=== PATIENT | male | born 1985 | race Caucasian/White ===

== ENCOUNTER 2022-12-16 22:04 | Inpatient (IN) ==
[2022-12-16 22:28] LABS: Hematocrit 35.8 % (38-53); Mean Corpuscular Hemoglobin 29.5 pg (27-33); Mean Corpuscular Hgb Conc 33.5 g/dL (31-36); Mean Corpuscular Volume 88.1 fL (80-97); Mean Platelet Volume 9.8 fL (7.5-11.2); Platelet Count 174 10^3/uL (150-450); Red Blood Count 4.07 10^6/uL (4.06-5.63); Red Cell Distribution Width 13.6 % (12-17); White Blood Count 24.3 10^3/uL (3.6-10.2)
[2022-12-16 22:35] LABS: ABS Basophils 0.1 10^3/uL (0.0-0.1); ABS Eosinophils 0.1 10^3/uL (0.0-0.5); ABS Lymphocytes 0.7 10^3/uL (1.0-4.8); ABS Monocytes 1.6 10^3/uL (0.0-1.1); ABS Neutrophils 21.8 10^3/uL (1.5-7.6); ABS Nucleated RBC 0.01 10^3/ul; Eosinophil % 0.2 %
[2022-12-16 22:36] LABS: INR 2.04 (0.88-1.18)
[2022-12-16 22:56] LABS: Albumin 3.6 g/dL (3.2-5.2); Albumin/Globulin Ratio 1.3 (1-3); Creatinine, Serum 0.75 mg/dL (0.67-1.17); Globulin 2.7 g/dL (2-4); Total Bilirubin 0.5 mg/dL (0.2-1.0); Total Protein 6.3 g/dL (6.4-8.9); eGFR CKD-EPI 118.5 (>60)
[2022-12-16] MEDS: Heparin 5000 UNITS/ML 1 mL VIAL IV SCH (23:57)
[2022-12-17] MEDS: Heparin DRIP 25,000 UNITS BAG 25,000 UNITS/500 ML BAG IV SCH ×2 (00:02→20:54)
[2022-12-17 00:10] LABS: High Sensitivity Troponin 1 Hr 6386 pg/mL (<20)
[2022-12-17] MEDS ORDERED: Lactated Ringers 1000 ml BAG 1,000 ML IV ONE (00:47)
[2022-12-17] MEDS ORDERED: Iohexol 350 (CONTRAST) 500 ML MDV IV ONE (01:37)
[2022-12-17 01:46] LABS: C Reactive Protein 238.12 mg/L (<8.01)
[2022-12-17] MEDS ORDERED: Piperacillin/Tazobac 3.375 BAG 3.375 GM/100 ML BAG IV ONE (02:23)
[2022-12-17] MEDS ORDERED: Vancomycin 1,250 MG in NS 0.9% 250 ml 250 ML IVPB ONE (02:23)
[2022-12-17] MEDS ORDERED: NS 0.9% 1000 ml BAG 1,000 ML IV ONE ×2 (02:46→10:09)
[2022-12-17 04:41] LABS: HDL Cholesterol 27.7 mg/dL
[2022-12-17] MEDS ORDERED: Zosyn per Pharmacy NOTE FOLLOW UP SCH (05:00)
[2022-12-17 05:35] LABS: Hematocrit 36.1 % (38-53); Hemoglobin 12.1 g/dL (13.2-16.3); Mean Corpuscular Hemoglobin 29.3 pg (27-33); Mean Corpuscular Hgb Conc 33.4 g/dL (31-36); Mean Corpuscular Volume 87.8 fL (80-97); Mean Platelet Volume 9.8 fL (7.5-11.2); Platelet Count 169 10^3/uL (150-450); Red Blood Count 4.12 10^6/uL (4.06-5.63); White Blood Count 24.4 10^3/uL (3.6-10.2)
[2022-12-17 05:40] LABS: ABS Basophils 0.1 10^3/uL (0.0-0.1); ABS Monocytes 1.3 10^3/uL (0.0-1.1); ABS Neutrophils 21.9 10^3/uL (1.5-7.6); Eosinophil % 0.1 %
[2022-12-17 05:53] LABS: Calcium 9.4 mg/dL (8.6-10.3); Creatinine, Serum 0.64 mg/dL (0.67-1.17); Magnesium 1.5 mg/dL (1.9-2.7); Potassium 3.7 mmol/L (3.5-5.0); eGFR CKD-EPI 124.3 (>60)
[2022-12-17] MEDS: DOXYcycline 100 MG in NS 0.9% 250 ml 250 ML IVPB SCH ×2 (06:32→19:03)
[2022-12-17] MEDS ORDERED: TROSPIUM 20 MG PO SCH (09:00)
[2022-12-17] MEDS: ZOSYN 3.375 GM Q8H per EXTENDED INFUSION IV SCH ×3 (09:30→22:04)
[2022-12-17] MEDS ORDERED: Linezolid 600 MG IVPREMIX(*) 600 MG/300 ML BAG IVPB ONE (09:59)
[2022-12-17] MEDS ORDERED: Magnesium Sulf 4 GM/100 ML IV 4,000 MG/100 ML BAG IVPB ONE (10:31)
[2022-12-17] MEDS ORDERED: Magnesium Sulfate IV 1GM/100ML 1 GM/100 ML BAG IV ONE (10:34)
[2022-12-17] MEDS ORDERED: Morphine 2 MG/ML SYRINGE IV ONE (11:01)
[2022-12-17 12:59] LABS: High Sensitivity Troponin 1 Hr 8938 pg/mL (<20)
[2022-12-17 13:25] LABS: Activated Partial Thrombo Time 48.9 seconds (26.0-38.0)
[2022-12-17] MEDS: Heparin 5000 UNITS/ML 1 mL VIAL IV SCH ×2 (13:50→21:00)
[2022-12-17] MEDS ORDERED: Morphine 2 MG/ML SYRINGE IV PRN (14:17)
[2022-12-17] MEDS ORDERED: Nitro 2% OINT (Nitroglycerin) 1 INCH/PAK TOPICAL ONE (17:13)
[2022-12-17 17:31] LABS: Urine Appearance Cloudy; Urine Bilirubin Negative (Negative); Urine Blood 1+ (Negative); Urine Color Yellow; Urine Glucose Negative (Negative); Urine Ketones Negative (Negative); Urine Nitrite Negative (Negative); Urine Protein Negative (Negative); Urine Specific Gravity 1.003 (1.002-1.030); Urine Urobilinogen Negative (Negative)
[2022-12-17 17:40] LABS: Urine Bacteria Absent (Absent); Urine Red Blood Cell 3+(>10/hpf) (Absent); Urine Sperm Present (Absent); Urine White Blood Cell 3+(>20/hpf) (Absent)
[2022-12-17] MEDS ORDERED: Lactated Ringers 1000 ml BAG 1,000 ML IV SCH (18:00)
[2022-12-17] MEDS: Senna TAB 8.6 mg TAB PO PRN (18:28)
[2022-12-17] MEDS: Ondansetron 4 mg VIAL 2 MG/ML 2 ml VIAL IV PRN ×2 (18:34→22:11)
[2022-12-17] MEDS: Nitro 2% OINT (Nitroglycerin) 1 INCH/PAK TOPICAL PRN ×2 (18:52→20:32)
[2022-12-17] MEDS: Trospium 20 mg TAB (NF) PO SCH (20:09)
[2022-12-17] MEDS ORDERED: Lactulose 30 ml UDC PO ONE (20:25)
[2022-12-17] MEDS: Polyethylene Glycol 3350 17 GM PACKET PO PRN (22:02)
[2022-12-18] MEDS: ZOSYN 3.375 GM Q8H per EXTENDED INFUSION IV SCH ×3 (07:23→20:51)
[2022-12-18] MEDS: Trospium 20 mg TAB (NF) PO SCH ×2 (07:23→20:50)
[2022-12-18] MEDS ORDERED: Magnesium Sulf 4 GM/100 ML IV 4,000 MG/100 ML BAG IVPB ONE (07:42)
[2022-12-18] MEDS: Aspirin EC 81 mg TAB.EC (enteric coated) PO SCH (08:52)
[2022-12-18] MEDS ORDERED: Lactated Ringers 1000 ml BAG 1,000 ML IV SCH (09:00)
[2022-12-18] MEDS ORDERED: Senna TAB 8.6 mg TAB PO PRN (09:59)
[2022-12-18] MEDS: Ondansetron 4 mg VIAL 2 MG/ML 2 ml VIAL IV PRN (11:07)
[2022-12-18] MEDS: Senna TAB 8.6 mg TAB PO PRN (11:09)
[2022-12-18] MEDS ORDERED: Lactulose 30 ml UDC PO ONE (12:15)
[2022-12-18 13:46] LABS: ABS Lymphocytes 0.4 10^3/uL (1.0-4.8); ABS Monocytes 0.5 10^3/uL (0.0-1.1); ABS Neutrophils 7.4 10^3/uL (1.5-7.6); ABS Nucleated RBC 0.01 10^3/ul; Eosinophil % 0.1 %; Hematocrit 35.1 % (38-53); Hemoglobin 12.1 g/dL (13.2-16.3); Lymphocyte % 5.2 %; Mean Corpuscular Hgb Conc 34.6 g/dL (31-36); Mean Corpuscular Volume 86.7 fL (80-97); Mean Platelet Volume 9.9 fL (7.5-11.2); Nucleated Red Blood Cells % 0.1 /100 WBC (0.0-0.4); Platelet Count 163 10^3/uL (150-450); Red Blood Count 4.04 10^6/uL (4.06-5.63); Red Cell Distribution Width 13.3 % (12-17); White Blood Count 8.4 10^3/uL (3.6-10.2)
[2022-12-18 14:01] LABS: C Reactive Protein 115.06 mg/L (<8.01); Calcium 8.2 mg/dL (8.6-10.3); Creatinine, Serum 0.71 mg/dL (0.67-1.17); Magnesium 2.6 mg/dL (1.9-2.7); Potassium 3.4 mmol/L (3.5-5.0); eGFR CKD-EPI 120.4 (>60)
[2022-12-18] MEDS ORDERED: Midazolam 5 mg/5 ml VIAL 1 mg/ml 5 ml VIAL (5 mg) ONE (14:08)
[2022-12-18] MEDS ORDERED: Iohexol 350 (CONTRAST) 100 ML PAK IV ONE (14:09)
[2022-12-18] MEDS ORDERED: nitroGLYCERIN DRIP 25,000 MCG/250 ML BTL ONE (14:09)
[2022-12-18] MEDS ORDERED: Lidocaine 1% MPF 5 ML VIAL ONE (14:09)
[2022-12-18] MEDS ORDERED: Heparin 2 UNITS/ML 1000 mls 2,000 ML IV ONE (14:09)
[2022-12-18] MEDS ORDERED: fentaNYL 100 mcg/2 ml 50 MCG/ML VIAL ONE (14:09)
[2022-12-18] MEDS ORDERED: VERAPAMIL 2.5 MG/ML 2 ML VIAL ** 5 mg/2 ml ONE (14:09)
[2022-12-18] MEDS ORDERED: Iohexol 350 (CONTRAST) 200 ML MDV IV ONE (14:09)
[2022-12-18] MEDS ORDERED: Heparin 1,000 UNIT/ML 10 ml (10,000 UNITS) CATHLAB/DIALYSIS ONE (14:09)
[2022-12-18] MEDS ORDERED: Midazolam 10 mg/10 ml VIAL 1 mg/ml 10 ml VIAL (10 mg) IV SLOW PU ONE (14:29)
[2022-12-18] MEDS ORDERED: fentaNYL 100 mcg/2 ml 50 MCG/ML VIAL IV SLOW PU ONE (14:29)
[2022-12-18 14:46] LABS: Activated Partial Thrombo Time 30.4 seconds (26.0-38.0); INR 1.23 (0.88-1.18)
[2022-12-18] MEDS ORDERED: NS 0.9% 1000 ml BAG 1,000 ML IV SCH (15:00)
[2022-12-18] MEDS: Nitro 2% OINT (Nitroglycerin) 1 INCH/PAK TOPICAL PRN (16:55)
[2022-12-18] MEDS: Polyethylene Glycol 3350 17 GM PACKET PO PRN (17:43)
[2022-12-19] MEDS: ZOSYN 3.375 GM Q8H per EXTENDED INFUSION IV SCH ×3 (04:31→21:30)
[2022-12-19] MEDS: Enoxaparin 40 MG/0.4 ML SYR SUBCUT SCH (05:22)
[2022-12-19 06:39] LABS: Hematocrit 31.7 % (38-53); Mean Corpuscular Hgb Conc 34.7 g/dL (31-36); Mean Corpuscular Volume 86.5 fL (80-97); Mean Platelet Volume 9.7 fL (7.5-11.2); Platelet Count 159 10^3/uL (150-450); Red Blood Count 3.66 10^6/uL (4.06-5.63); Red Cell Distribution Width 13.2 % (12-17); White Blood Count 5.1 10^3/uL (3.6-10.2)
[2022-12-19 06:53] LABS: Calcium 7.8 mg/dL (8.6-10.3); Creatinine, Serum 0.64 mg/dL (0.67-1.17); Potassium 3.3 mmol/L (3.5-5.0); eGFR CKD-EPI 124.3 (>60)
[2022-12-19 07:17] LABS: ABS Lymphocytes 0.5 10^3/uL (1.0-4.8); ABS Monocytes 0.6 10^3/uL (0.0-1.1); ABS Nucleated RBC 0.01 10^3/ul; Eosinophil % 0.5 %; Lymphocyte % 9.2 %; Nucleated Red Blood Cells % 0.2 /100 WBC (0.0-0.4)
[2022-12-19] MEDS: Trospium 20 mg TAB (NF) PO SCH ×2 (07:30→18:22)
[2022-12-19] MEDS ORDERED: Potassium Chlor 20 meq TAB.ER PO ONE ×2 (07:41→17:47)
[2022-12-19] MEDS: Aspirin EC 81 mg TAB.EC (enteric coated) PO SCH (08:43)
[2022-12-19 09:33] LABS: Magnesium 2.1 mg/dL (1.9-2.7)
[2022-12-19] MEDS: Ondansetron 4 mg VIAL 2 MG/ML 2 ml VIAL IV PRN (18:09)
[2022-12-19] MEDS ORDERED: Nitro 2% OINT (Nitroglycerin) 1 INCH/PAK TOPICAL ONE (20:20)
[2022-12-20] MEDS: Enoxaparin 40 MG/0.4 ML SYR SUBCUT SCH (05:12)
[2022-12-20 06:07] LABS: Hematocrit 35.3 % (38-53); Hemoglobin 12.3 g/dL (13.2-16.3); Mean Corpuscular Hgb Conc 34.7 g/dL (31-36); Mean Corpuscular Volume 86.5 fL (80-97); Mean Platelet Volume 9.1 fL (7.5-11.2); Platelet Count 179 10^3/uL (150-450); Red Blood Count 4.09 10^6/uL (4.06-5.63); Red Cell Distribution Width 13.3 % (12-17); White Blood Count 4.3 10^3/uL (3.6-10.2)
[2022-12-20 06:25] LABS: Calcium 8.3 mg/dL (8.6-10.3); Creatinine, Serum 0.64 mg/dL (0.67-1.17); Magnesium 1.8 mg/dL (1.9-2.7); Potassium 4.1 mmol/L (3.5-5.0); eGFR CKD-EPI 124.3 (>60)
[2022-12-20 08:30] LABS: ABS Basophils 0.1 10^3/uL (0.0-0.1); ABS Eosinophils 0.1 10^3/uL (0.0-0.5); ABS Lymphocytes 0.7 10^3/uL (1.0-4.8); ABS Monocytes 0.6 10^3/uL (0.0-1.1); ABS Neutrophils 2.9 10^3/uL (1.5-7.6); Eosinophil % 1.4 %; Lymphocyte % 16.4 %; Nucleated Red Blood Cells % 0.1 /100 WBC (0.0-0.4)
[2022-12-20] MEDS ORDERED: ZOSYN 3.375 GM Q8H per EXTENDED INFUSION IV SCH (09:00)
[2022-12-20] MEDS: Trospium 20 mg TAB (NF) PO SCH (09:14)
[2022-12-20] MEDS: Aspirin EC 81 mg TAB.EC (enteric coated) PO SCH (09:16)
[2022-12-20] MEDS ORDERED: Calcium (OSCAL) 500 mg TAB PO SCH (12:00)
[2022-12-20 14:44] VITALS: BP 117/69
[2022-12-20 21:08] LABS: Anaplasma phagocytophilum Negative (Negative); B. miyamotoi PCR, B Negative (Negative); Babesia divergens/MO-1 Negative (Negative); Babesia ducani Negative (Negative); Ehrlichia chaffeensis Negative (Negative); Ehrlichia ewingii/canis Negative (Negative); Ehrlichia muris eauclairensis Negative (Negative)
== END 2022-12-20 14:15 | disposition home or self-care (01) | DRG 698 ==
LOC: EDHOLD 22:04 → ED 22:04 → INTOOBSV 12-17 02:53 → SUATTDRO 12-17 02:53 → MEDTELE 12-17 04:07
PROVIDERS: ADMIT Student in an Organized Health Care Education/Training Program; ATTEND Internal Medicine

== ENCOUNTER 2024-01-01 00:51 | Inpatient (IN) ==
[2024-01-01] MEDS: Ondansetron 4 mg VIAL 2 MG/ML 2 ml VIAL IV ONE (01:39)
[2024-01-01] MEDS: Piperacillin/Tazobac 3.375 BAG 3.375 GM/100 ML BAG IV ONE (01:41)
[2024-01-01] MEDS: Lactated Ringers SEPSIS* BAG 2,260 ML IV ONE (01:42)
[2024-01-01 02:07] LABS: Hematocrit 43.4 % (38-53); Hemoglobin 14.3 g/dL (13.2-16.3); Mean Corpuscular Hemoglobin 28.6 pg (27-33); Mean Corpuscular Volume 86.5 fL (80-97); Mean Platelet Volume 10.3 fL (7.5-11.2); Platelet Count 229 10^3/uL (150-450); Red Blood Count 5.01 10^6/uL (4.06-5.63); Red Cell Distribution Width 13.5 % (12-17); White Blood Count 21.7 10^3/uL (3.6-10.2)
[2024-01-01 02:11] LABS: Urine Appearance Turbid; Urine Bilirubin Negative (Negative); Urine Blood 2+ (Negative); Urine Color Colorless; Urine Glucose Negative (Negative); Urine Ketones 1+ (Negative); Urine Nitrite 1+ (Negative); Urine Protein Trace (Negative); Urine Specific Gravity 1.008 (1.002-1.030); Urine Urobilinogen Negative (Negative); Urine pH 6.5 (5.0-8.0)
[2024-01-01 02:20] LABS: Urine Bacteria 1+ /HPF (Absent); Urine Red Blood Cell 2+(6-10/hpf) /HPF (0-Trace); Urine Sperm Present /HPF (Absent); Urine White Blood Cell 3+(>20/hpf) /HPF (0-Trace)
[2024-01-01 02:23] LABS: Activated Partial Thrombo Time 48.4 seconds (26.0-38.0); INR 2.36 (0.83-1.13)
[2024-01-01 02:36] LABS: ABS Basophils 0.1 10^3/uL (0.0-0.1); ABS Lymphocytes 0.9 10^3/uL (1.0-4.8); ABS Monocytes 1.7 10^3/uL (0.0-1.1); Lymphocyte % 4.1 %
[2024-01-01 02:43] LABS: Albumin 4.6 g/dL (3.2-5.2); Albumin/Globulin Ratio 1.7 (1-3); C Reactive Protein 81.27 mg/L (<8.01); Calcium 10.1 mg/dL (8.6-10.3); Creatinine, Serum 0.85 mg/dL (0.67-1.17); Globulin 2.7 g/dL (2-4); Potassium 4.2 mmol/L (3.5-5.0); Total Bilirubin 1.2 mg/dL (0.2-1.0); Total Protein 7.3 g/dL (6.4-8.9); eGFR CKD-EPI 113.4 (>60)
[2024-01-01] MEDS ORDERED: Lorazepam PYXIS KEY PRN (03:09)
[2024-01-01 03:13] LABS: High Sensitivity Troponin 1 Hr 33 pg/mL (<20)
[2024-01-01] MEDS: LORazepam 2 mg VIAL 1 ml IV PUSH ONE (03:13)
[2024-01-01 03:20] LABS: Magnesium 1.7 mg/dL (1.9-2.7)
[2024-01-01] MEDS: Magnesium Sulfate 2 gm BAG 2 GM/50 ML BAG IVPB ONE (04:31)
[2024-01-01] MEDS: Cefepime 2 GM in Dextrose 2 GM/50 ML BAG IV SCH ×2 (05:51→20:33)
[2024-01-01 06:17] LABS: High Sensitivity Troponin 3 Hr 53 pg/mL (<20)
[2024-01-01] MEDS: Acetaminophen IV 1 GM/100ML 1,000 MG/100 ML BAG IV PRN (10:05)
[2024-01-01] MEDS: Ondansetron 4 mg VIAL 2 MG/ML 2 ml VIAL IV PRN (10:19)
[2024-01-01] MEDS: Senna TAB 8.6 mg TAB PO SCH (10:59)
[2024-01-01] MEDS ORDERED: Nitro 2% OINT (Nitroglycerin) 1 INCH/PAK TOPICAL PRN ×2 (14:38→15:25)
[2024-01-01] MEDS: NS 0.9% 1000 ml BAG 1,000 ML IV SCH (17:55)
[2024-01-01] MEDS: Scopolamine 1 mg/72hr PATCH TRANSDERM SCH (18:27)
[2024-01-02] MEDS ORDERED: Lorazepam PYXIS KEY PRN ×2 (02:30→09:17)
[2024-01-02] MEDS: LORazepam 2 mg VIAL 1 ml IV PUSH ONE (02:37)
[2024-01-02 06:26] LABS: ABS Basophils 0.1 10^3/uL (0.0-0.1); ABS Lymphocytes 0.6 10^3/uL (1.0-4.8); ABS Neutrophils 11.6 10^3/uL (1.5-7.6); Hematocrit 36.5 % (38-53); Hemoglobin 12.1 g/dL (13.2-16.3); Lymphocyte % 4.4 %; Mean Corpuscular Hemoglobin 28.9 pg (27-33); Mean Corpuscular Hgb Conc 33.1 g/dL (31-36); Mean Corpuscular Volume 87.2 fL (80-97); Mean Platelet Volume 10.1 fL (7.5-11.2); Platelet Count 161 10^3/uL (150-450); Red Blood Count 4.19 10^6/uL (4.06-5.63); White Blood Count 13.2 10^3/uL (3.6-10.2)
[2024-01-02 06:38] LABS: Calcium 8.5 mg/dL (8.6-10.3); Creatinine, Serum 0.68 mg/dL (0.67-1.17); Magnesium 1.6 mg/dL (1.9-2.7); Potassium 3.8 mmol/L (3.5-5.0); eGFR CKD-EPI 121.3 (>60)
[2024-01-02] MEDS: Magnesium Sulfate 2 gm BAG 2 GM/50 ML BAG IVPB ONE (08:45)
[2024-01-02] MEDS: LORazepam 2 mg VIAL 1 ml IV PUSH PRN (09:25)
[2024-01-02] MEDS: LORazepam 2 mg VIAL 1 ml ONE (10:05)
[2024-01-02] MEDS: Magnesium Sulfate IV 1GM/100ML 1 GM/100 ML BAG IV ONE (11:26)
[2024-01-03 05:41] LABS: ABS Lymphocytes 0.4 10^3/uL (1.0-4.8); ABS Monocytes 0.5 10^3/uL (0.0-1.1); ABS Neutrophils 4.6 10^3/uL (1.5-7.6); ABS Nucleated RBC 0.01 10^3/ul; Eosinophil % 0.2 %; Hematocrit 34.2 % (38-53); Hemoglobin 11.6 g/dL (13.2-16.3); Lymphocyte % 6.4 %; Mean Corpuscular Hemoglobin 29.3 pg (27-33); Mean Corpuscular Volume 86.1 fL (80-97); Mean Platelet Volume 8.8 fL (7.5-11.2); Nucleated Red Blood Cells % 0.1 %/100WBC (0.0-0.8); Platelet Count 139 10^3/uL (150-450); Red Blood Count 3.97 10^6/uL (4.06-5.63); Red Cell Distribution Width 13.8 % (12-17); White Blood Count 5.6 10^3/uL (3.6-10.2)
[2024-01-03] MEDS: Acetaminophen IV 1 GM/100ML 1,000 MG/100 ML BAG IV ONE (06:08)
[2024-01-03 06:13] LABS: Calcium 7.7 mg/dL (8.6-10.3); Creatinine, Serum 0.61 mg/dL (0.67-1.17); Magnesium 1.9 mg/dL (1.9-2.7); Potassium 3.9 mmol/L (3.5-5.0); eGFR CKD-EPI 125.3 (>60)
[2024-01-03] MEDS: Scopolamine 1 mg/72hr PATCH TRANSDERM SCH (09:28)
[2024-01-03] MEDS: Acetaminophen IV 1 GM/100ML 1,000 MG/100 ML BAG IV PRN (12:36)
[2024-01-03] MEDS: cefTRIAXone 1 gm/50 mL D5W 1 GM/50 ML BAG IV SCH (22:16)
[2024-01-03] MEDS: Lidocaine PATCH 5% PATCH TRANSDERM SCH (22:46)
[2024-01-04 06:13] LABS: ABS Lymphocytes 0.5 10^3/uL (1.0-4.8); ABS Monocytes 0.6 10^3/uL (0.0-1.1); ABS Neutrophils 3.1 10^3/uL (1.5-7.6); Eosinophil % 0.6 %; Hematocrit 31.6 % (38-53); Lymphocyte % 12.2 %; Mean Corpuscular Hemoglobin 29.8 pg (27-33); Mean Corpuscular Hgb Conc 34.8 g/dL (31-36); Mean Corpuscular Volume 85.8 fL (80-97); Mean Platelet Volume 9.5 fL (7.5-11.2); Platelet Count 150 10^3/uL (150-450); Red Blood Count 3.68 10^6/uL (4.06-5.63); Red Cell Distribution Width 13.4 % (12-17); White Blood Count 4.2 10^3/uL (3.6-10.2)
[2024-01-04] MEDS: Calcium Carb (TUMS) 500 mg CHEW TAB PO ONE (10:49)
[2024-01-04] MEDS ORDERED: Calcium Carb (TUMS) 500 mg CHEW TAB PO PRN (13:55)
[2024-01-04] MEDS: Trimethobenzamide *IM* 100 mg/ml 2 ml VIAL (200 mg) IM PRN (19:43)
[2024-01-04 19:44] LABS: Calcium 8.3 mg/dL (8.6-10.3); Creatinine, Serum 0.65 mg/dL (0.67-1.17); Magnesium 1.8 mg/dL (1.9-2.7); Potassium 3.9 mmol/L (3.5-5.0); eGFR CKD-EPI 122.9 (>60)
[2024-01-05 06:50] LABS: ABS Eosinophils 0.1 10^3/uL (0.0-0.5); ABS Lymphocytes 1.1 10^3/uL (1.0-4.8); ABS Neutrophils 2.9 10^3/uL (1.5-7.6); Hematocrit 31.7 % (38-53); Hemoglobin 11.1 g/dL (13.2-16.3); Lymphocyte % 21.2 %; Mean Corpuscular Hemoglobin 29.9 pg (27-33); Mean Corpuscular Hgb Conc 35.2 g/dL (31-36); Mean Corpuscular Volume 84.9 fL (80-97); Mean Platelet Volume 9.3 fL (7.5-11.2); Nucleated Red Blood Cells % 0.1 %/100WBC (0.0-0.8); Platelet Count 172 10^3/uL (150-450); Red Blood Count 3.73 10^6/uL (4.06-5.63); Red Cell Distribution Width 13.4 % (12-17); White Blood Count 5.1 10^3/uL (3.6-10.2)
[2024-01-05 13:43] VITALS: BP 118/74
[2024-01-06 14:18] LABS: Anaplasma phagocytophilum Negative (Negative); B. miyamotoi PCR, B Negative (Negative); Babesia divergens/MO-1 Negative (Negative); Babesia ducani Negative (Negative); Ehrlichia chaffeensis Negative (Negative); Ehrlichia ewingii/canis Negative (Negative); Ehrlichia muris eauclairensis Negative (Negative)
== END 2024-01-05 16:30 | disposition home or self-care (01) | DRG 698 ==
LOC: EDHOLD 00:51 → ED 00:51 → SUATTDRO 03:37 → OBSVTOIN 03:41 → SUATTDRO 03:41 → MEDTELE 08:47
PROVIDERS: ADMIT Internal Medicine; ATTEND Internal Medicine